=== PATIENT | female | born 1965 | race Caucasian/White ===

== ENCOUNTER 2018-01-26 14:38 | Inpatient (IN) | payer OTHER ==
[2018-01-26] MEDS: HYDROmorphONE 0.5 MG/0.5 ML SYG IV ×3 (16:28→23:20)
[2018-01-26] MEDS: SODIUM CHLORIDE 0.9% 1L BAG IV* (16:29)
[2018-01-26 16:48] LABS: ADD UMIC YES; UR ASCORBIC ACID NEGATIVE (NEGATIVE); UR BILIRUBIN (Dip) NEGATIVE (NEGATIVE); UR BLOOD (Dip) NEGATIVE (NEGATIVE); UR CLARITY CLEAR (CLEAR); UR COLOR YELLOW (YELLOW); UR GLUCOSE (Dip) NEGATIVE (NEGATIVE); UR KETONES (Dip) NEGATIVE (NEGATIVE); UR LEUKOCYTE ESTERASE (Dip) TRACE Leu/ul (NEGATIVE); UR NITRITE (Dip) NEGATIVE (NEGATIVE); UR RBC 1 /HPF (0-5); UR SPECIFIC GRAVITY (Dip) 1.008 (1.003-1.030); UR SQUAMOUS EPITHELIAL CELL FEW /HPF (FEW); UR TOTAL PROTEIN (Dip) NEGATIVE (NEGATIVE); UR UROBILINOGEN (Dip) NEGATIVE (NEGATIVE); UR WBC 3 /HPF (0-5)
[2018-01-26 17:22] LABS: LACTIC ACID 1.1 mmol/L (0.5-2.0)
[2018-01-26 17:23] LABS: ALANINE AMINOTRANSFERASE 34 IU/L (13-69); ALBUMIN 3.5 g/dl (3.3-4.9); ALKALINE PHOSPHATASE 112 IU/L (42-121); ANION GAP 15 (8-16); ASPARTATE AMINO TRANSFERASE 43 IU/L (15-46); BILIRUBIN,INDIRECT 0.4 mg/dl (0-1.1); BILIRUBIN,TOTAL 0.4 mg/dl (0.2-1.3); BLOOD UREA NITROGEN 4 mg/dl (7-20); CALCIUM 9.2 mg/dl (8.4-10.2); CARBON DIOXIDE 22 mmol/L (21-31); CHLORIDE 104 mmol/L (97-110); CREATININE 0.65 mg/dl (0.44-1.00); GLUCOSE 89 mg/dl (70-220); POTASSIUM 3.6 mmol/L (3.5-5.1); SODIUM 137 mmol/L (135-144); TOTAL PROTEIN 6.4 g/dl (6.1-8.1)
[2018-01-26 17:27] LABS: VANCOMYCIN,RANDOM 13.9 ug/ml
[2018-01-26 17:49] LABS: C-REACTIVE PROTEIN 1.3 mg/dl (0.0-0.9); TROPONIN-I < 0.012 ng/ml (0.00-0.12)
[2018-01-26 17:53] LABS: ADD MAN DIFF? NO
[2018-01-26 17:58] LABS: BASOPHILS % 0.6 % (0.0-2.0); EOSINOPHILS # 0.1 10^3/ul (0.0-0.5); EOSINOPHILS % 2.8 % (0.0-7.0); HEMATOCRIT 32.9 % (37.0-47.0); HEMOGLOBIN 11.3 g/dl (12.0-16.0); LYMPHOCYTES # 0.9 10^3/ul (0.8-2.9); MEAN CORPUSCULAR HEMOGLOBIN 37.2 pg (29.0-33.0); MEAN CORPUSCULAR HGB CONC 34.3 g/dl (32.0-37.0); MEAN CORPUSCULAR VOLUME 108.2 fl (82.0-101.0); MEAN PLATELET VOLUME 9.5 fl (7.4-10.4); MONOCYTE # 0.4 10^3/ul (0.3-0.9); MONOCYTES % 11.7 % (0.0-11.0); NEUTROPHIL # 2.2 10^3/ul (1.6-7.5); NEUTROPHILS % 60.6 % (39.0-77.0); PLATELET COUNT 209 10^3/UL (140-415); RED BLOOD COUNT 3.04 10^6/ul (4.20-5.40); RED CELL DISTRIBUTION WIDTH 14.2 % (11.5-14.5)
[2018-01-26 17:58] LABS: WHITE BLOOD COUNT 3.6 10^3/ul (4.8-10.8)
[2018-01-26] MEDS: ALTEPLASE (CATHFLO) 2 MG INJ CATHETER (18:15)
[2018-01-26 19:17] LABS: INR 0.98; PROTIME 13.1 Sec (11.9-14.9)
[2018-01-26 19:21] LABS: LACTIC ACID 0.9 mmol/L (0.5-2.0)
[2018-01-26 19:59] LABS: ERYTHROCYTE SEDIMENTATION RATE 65 mm/Hr (0-30)
[2018-01-26] MEDS ORDERED: ONDANSETRON 4 MG INJ IV ×2 (20:30→21:00)
[2018-01-26] MEDS ORDERED: ACETAMINOPHEN 325 MG TAB PO ×2 (20:30→21:00)
[2018-01-26] MEDS ORDERED: BISACODYL (EC) 5 MG TAB PO (21:00)
[2018-01-26] MEDS ORDERED: DOCUSATE SODIUM 100 MG CAP PO (21:00)
[2018-01-26] MEDS ORDERED: NACL 0.9% 3 ML SYG IV (21:00)
[2018-01-26 22:02] LABS: ETHANOL < 10.0 mg/dl
[2018-01-26] MEDS: HYDROmorphONE 4 MG TAB PO (22:18)
[2018-01-26 23:19] LABS: FOLATE > 20.0 ng/ml (2.8-20.0)
[2018-01-27] MEDS: HYDROmorphONE 0.5 MG/0.5 ML SYG IV ×3 (03:46→12:00)
[2018-01-27 05:07] LABS: ADD MAN DIFF? NO
[2018-01-27 05:15] LABS: WHITE BLOOD COUNT 2.7 10^3/ul (4.8-10.8)
[2018-01-27 05:15] LABS: BASOPHILS % 0.7 % (0.0-2.0); EOSINOPHILS # 0.2 10^3/ul (0.0-0.5); EOSINOPHILS % 5.9 % (0.0-7.0); HEMOGLOBIN 10.2 g/dl (12.0-16.0); LYMPHOCYTES # 0.7 10^3/ul (0.8-2.9); LYMPHOCYTES % 24.5 % (15.0-51.0); MEAN CORPUSCULAR HGB CONC 35.2 g/dl (32.0-37.0); MEAN CORPUSCULAR VOLUME 105.1 fl (82.0-101.0); MONOCYTE # 0.2 10^3/ul (0.3-0.9); MONOCYTES % 8.4 % (0.0-11.0); NEUTROPHIL # 1.6 10^3/ul (1.6-7.5); NEUTROPHILS % 60.1 % (39.0-77.0); PLATELET COUNT 205 10^3/UL (140-415); RED BLOOD COUNT 2.76 10^6/ul (4.20-5.40); RED CELL DISTRIBUTION WIDTH 14.2 % (11.5-14.5)
[2018-01-27 05:32] LABS: POSITIVE DIFF @See below
[2018-01-27 05:34] LABS: ALANINE AMINOTRANSFERASE 37 IU/L (13-69); ALBUMIN 3.1 g/dl (3.3-4.9); ALBUMIN/GLOBULIN RATIO 1.24; ALKALINE PHOSPHATASE 109 IU/L (42-121); ANION GAP 13 (8-16); ASPARTATE AMINO TRANSFERASE 24 IU/L (15-46); BILIRUBIN,INDIRECT 0.3 mg/dl (0-1.1); BILIRUBIN,TOTAL 0.3 mg/dl (0.2-1.3); BLOOD UREA NITROGEN 5 mg/dl (7-20); CALCIUM 9.1 mg/dl (8.4-10.2); CARBON DIOXIDE 22 mmol/L (21-31); CHLORIDE 106 mmol/L (97-110); CHOL/HDL RATIO 2.8 RATIO; CHOLESTEROL 165 mg/dl (100-200); CREATININE 0.67 mg/dl (0.44-1.00); GLUCOSE 90 mg/dl (70-220); HDL CHOLESTEROL 58 mg/dl (37-92); LDL CHOLESTEROL,CALCULATED 69 mg/dl; MAGNESIUM 1.4 mg/dl (1.7-2.5); POTASSIUM 3.3 mmol/L (3.5-5.1); SODIUM 138 mmol/L (135-144); TOTAL PROTEIN 5.6 g/dl (6.1-8.1); TRIGLYCERIDES 191 mg/dl (0-149)
[2018-01-27 06:13] LABS: HEMOGLOBIN A1C 4.6 % (0-5.9)
[2018-01-27] MEDS: PANTOPRAZOLE (EC) 40 MG TAB PO (06:36)
[2018-01-27] MEDS: LEVOTHYROXINE 25 MCG TAB PO (06:36)
[2018-01-27] MEDS: ALTEPLASE (CATHFLO) 2 MG INJ CATHETER (06:37)
[2018-01-27] MEDS ORDERED: VANCOMYCIN IV PER PHARMACY XX (08:00)
[2018-01-27] MEDS: FLUOXETINE 20 MG CAP PO (08:30)
[2018-01-27] MEDS: [UNRECOGNIZED DRUG - REMARK] XX ×2 (10:00→14:00)
[2018-01-27] MEDS: POTASSIUM CHLORIDE (SR) 20 MEQ TAB PO (10:13)
[2018-01-27] MEDS: VANCOMYCIN 1.25 GM in SOD CHLORIDE 0.9% 250 ML IVPB (10:13)
[2018-01-27] MEDS: METHADONE 10 MG TAB PO (10:23)
[2018-01-27] MEDS: IOHEXOL 300MG/ML 150 ML BTL (11:28)
[2018-01-27] MEDS: SOD CHLORIDE 0.9% 100 ML (11:28)
[2018-01-27] MEDS ORDERED: PIPER-TAZO 3.375 GM IV (PMX) 100 ML IVPB (12:00)
[2018-01-27] MEDS: MAGNESIUM SULFATE 4 GM/100 ML 100 ML IVPB (14:59)
[2018-01-27 15:03] LABS: ADD MAN DIFF? NO
[2018-01-27 15:04] LABS: BASOPHILS % 0.3 % (0.0-2.0); EOSINOPHILS # 0.2 10^3/ul (0.0-0.5); EOSINOPHILS % 5.6 % (0.0-7.0); HEMATOCRIT 27.7 % (37.0-47.0); HEMOGLOBIN 9.8 g/dl (12.0-16.0); LYMPHOCYTES # 0.7 10^3/ul (0.8-2.9); LYMPHOCYTES % 22.4 % (15.0-51.0); MEAN CORPUSCULAR HEMOGLOBIN 37.5 pg (29.0-33.0); MEAN CORPUSCULAR HGB CONC 35.4 g/dl (32.0-37.0); MEAN CORPUSCULAR VOLUME 106.1 fl (82.0-101.0); MEAN PLATELET VOLUME 9.4 fl (7.4-10.4); MONOCYTE # 0.3 10^3/ul (0.3-0.9); MONOCYTES % 8.3 % (0.0-11.0); NEUTROPHIL # 1.9 10^3/ul (1.6-7.5); NEUTROPHILS % 63.1 % (39.0-77.0); PLATELET COUNT 214 10^3/UL (140-415); RED BLOOD COUNT 2.61 10^6/ul (4.20-5.40); RED CELL DISTRIBUTION WIDTH 14.3 % (11.5-14.5)
[2018-01-27 15:20] LABS: FREE T4 (FREE THYROXINE) 1.22 ng/dl (0.64-1.79); T4 (THYROXINE) 7.5 ug/dl (5.5-11.0)
[2018-01-27] MEDS: KETOROLAC 30 MG INJ IV ×2 (15:56→23:57)
[2018-01-27 16:10] LABS: FOLATE > 20.0 ng/ml (2.8-20.0)
[2018-01-27 19:48] LABS: ANISOCYTOSIS 1+ (0-0); EOSINOPHILS % (M) 6 % (0-7); GIANT THROMBO% (M) 5 % (0-0); LYMPHOCYTES #M 0.5 10^3/ul (0.8-2.9); LYMPHOCYTES % (M) 18 % (15-51); MONOCYTES % (M) 3 % (0-11); PLATELET MORPHOLOGY COMMENT @See below; SEGMENTED NEUTROPHILS (M) % 73 % (39-77); SMUDGE%M 17 % (0-0)
[2018-01-27] MEDS: VANCOMYCIN 1 GM 250 ML IVPB (20:52)
[2018-01-27] MEDS: LORAZEPAM 1 MG TAB PO (20:57)
[2018-01-28 05:20] LABS: ADD MAN DIFF? NO
[2018-01-28 05:28] LABS: BASOPHILS % 0.4 % (0.0-2.0); EOSINOPHILS # 0.2 10^3/ul (0.0-0.5); EOSINOPHILS % 7.4 % (0.0-7.0); HEMATOCRIT 27.8 % (37.0-47.0); HEMOGLOBIN 9.5 g/dl (12.0-16.0); LYMPHOCYTES # 0.7 10^3/ul (0.8-2.9); LYMPHOCYTES % 30.7 % (15.0-51.0); MEAN CORPUSCULAR HEMOGLOBIN 37.1 pg (29.0-33.0); MEAN CORPUSCULAR HGB CONC 34.2 g/dl (32.0-37.0); MEAN CORPUSCULAR VOLUME 108.6 fl (82.0-101.0); MONOCYTE # 0.2 10^3/ul (0.3-0.9); NEUTROPHIL # 1.2 10^3/ul (1.6-7.5); NEUTROPHILS % 51.5 % (39.0-77.0); PLATELET COUNT 192 10^3/UL (140-415); RED BLOOD COUNT 2.56 10^6/ul (4.20-5.40); RED CELL DISTRIBUTION WIDTH 14.5 % (11.5-14.5)
[2018-01-28 05:28] LABS: WHITE BLOOD COUNT 2.3 10^3/ul (4.8-10.8)
[2018-01-28 05:50] LABS: ANION GAP 14 (8-16); BLOOD UREA NITROGEN 8 mg/dl (7-20); CALCIUM 8.7 mg/dl (8.4-10.2); CARBON DIOXIDE 21 mmol/L (21-31); CHLORIDE 110 mmol/L (97-110); CREATININE 0.82 mg/dl (0.44-1.00); GLUCOSE 79 mg/dl (70-220); MAGNESIUM 2.3 mg/dl (1.7-2.5); PHOSPHORUS 5.3 mg/dl (2.5-4.9); POTASSIUM 3.8 mmol/L (3.5-5.1); SODIUM 141 mmol/L (135-144)
[2018-01-28] MEDS: KETOROLAC 30 MG INJ IV ×2 (06:06→17:14)
[2018-01-28 06:26] LABS: HAAIG REFLEX REFLEX FILED
[2018-01-28 06:29] LABS: HIV 1&2 ANTIBODY NEGATIVE (NEGATIVE)
[2018-01-28] MEDS: LEVOTHYROXINE 25 MCG TAB PO (09:38)
[2018-01-28] MEDS: PANTOPRAZOLE (EC) 40 MG TAB PO (09:38)
[2018-01-28] MEDS: FLUOXETINE 20 MG CAP PO (09:39)
[2018-01-28] MEDS: VANCOMYCIN 1 GM 250 ML IVPB ×2 (09:43→21:18)
[2018-01-28] MEDS: HYDROmorphONE 2 MG/ML SYG IV (12:29)
[2018-01-28] MEDS: HYDROmorphONE 4 MG TAB PO ×2 (14:53→21:18)
[2018-01-28 15:25] LABS: HEPATITIS B SURFACE ANTIGEN NEGATIVE (NEGATIVE)
[2018-01-28 15:43] LABS: HEPATITIS B CORE ANTIBODY NEGATIVE (NEGATIVE); HEPATITIS C VIRAL ANTIBODY NEGATIVE (NEGATIVE)
[2018-01-28 18:18] LABS: RETICULOCYTE RBC 2.52
[2018-01-28 18:18] LABS: RETICULOCYTE COUNT # 0.059 X10^6 (0.020-0.110); RETICULOCYTE COUNT % 2.4 % (0.5-1.5)
[2018-01-28 18:41] LABS: IRON 29 ug/dl (35-150)
[2018-01-28 18:42] LABS: LACTATE DEHYDROGENASE 429 IU/L (313-618)
[2018-01-28 18:50] LABS: % IRON SATURATION 13 % SAT (22-52); TOTAL IRON BINDING CAPACITY 232 ug/dl (241-421)
[2018-01-28] MEDS: LORAZEPAM 1 MG TAB PO (21:18)
[2018-01-29] MEDS: KETOROLAC 30 MG INJ IV (02:31)
[2018-01-29] MEDS: HYDROmorphONE 4 MG TAB PO ×6 (04:55→23:35)
[2018-01-29 05:28] LABS: ADD MAN DIFF? NO
[2018-01-29 05:42] LABS: BASOPHILS % 0.7 % (0.0-2.0); EOSINOPHILS # 0.2 10^3/ul (0.0-0.5); EOSINOPHILS % 6.5 % (0.0-7.0); HEMATOCRIT 27.7 % (37.0-47.0); HEMOGLOBIN 9.5 g/dl (12.0-16.0); LYMPHOCYTES # 0.7 10^3/ul (0.8-2.9); LYMPHOCYTES % 25.1 % (15.0-51.0); MEAN CORPUSCULAR HEMOGLOBIN 36.7 pg (29.0-33.0); MEAN CORPUSCULAR HGB CONC 34.3 g/dl (32.0-37.0); MEAN CORPUSCULAR VOLUME 106.9 fl (82.0-101.0); MEAN PLATELET VOLUME 10.1 fl (7.4-10.4); MONOCYTE # 0.3 10^3/ul (0.3-0.9); MONOCYTES % 9.1 % (0.0-11.0); NEUTROPHIL # 1.6 10^3/ul (1.6-7.5); NEUTROPHILS % 58.2 % (39.0-77.0); PLATELET COUNT 192 10^3/UL (140-415); RED BLOOD COUNT 2.59 10^6/ul (4.20-5.40)
[2018-01-29 05:42] LABS: WHITE BLOOD COUNT 2.8 10^3/ul (4.8-10.8)
[2018-01-29] MEDS: PANTOPRAZOLE (EC) 40 MG TAB PO (06:27)
[2018-01-29] MEDS: LEVOTHYROXINE 25 MCG TAB PO (06:27)
[2018-01-29 06:51] LABS: ANION GAP 11 (8-16); BLOOD UREA NITROGEN 6 mg/dl (7-20); CALCIUM 8.6 mg/dl (8.4-10.2); CARBON DIOXIDE 25 mmol/L (21-31); CHLORIDE 109 mmol/L (97-110); CREATININE 0.74 mg/dl (0.44-1.00); GLUCOSE 79 mg/dl (70-220); MAGNESIUM 1.5 mg/dl (1.7-2.5); PHOSPHORUS 4.3 mg/dl (2.5-4.9); POTASSIUM 3.4 mmol/L (3.5-5.1); SODIUM 142 mmol/L (135-144)
[2018-01-29] MEDS: FLUOXETINE 20 MG CAP PO (08:57)
[2018-01-29 09:36] LABS: VANCOMYCIN,TROUGH 14.2 ug/ml (10.0-20.0)
[2018-01-29] MEDS: VANCOMYCIN 1 GM 250 ML IVPB ×2 (09:52→20:36)
[2018-01-29 19:50] LABS: HOMOCYSTEINE - CARDIOVASCULAR 7.9 umol/L (<10.4)
[2018-01-29] MEDS: LORAZEPAM 1 MG TAB PO (20:13)
[2018-01-29] MEDS: PIPER-TAZO 3.375 GM IV (PMX) 100 ML IVPB (23:00)
[2018-01-30] MEDS: HYDROmorphONE 4 MG TAB PO ×7 (02:34→23:17)
[2018-01-30 04:52] LABS: PROTEIN, TOTAL 5.1 g/dL (6.1-8.1)
[2018-01-30] MEDS: PIPER-TAZO 3.375 GM IV (PMX) 100 ML IVPB ×3 (05:41→22:39)
[2018-01-30] MEDS: LEVOTHYROXINE 25 MCG TAB PO (06:43)
[2018-01-30] MEDS: PANTOPRAZOLE (EC) 40 MG TAB PO (06:43)
[2018-01-30] MEDS: FLUOXETINE 20 MG CAP PO (08:39)
[2018-01-30] MEDS: VANCOMYCIN 1 GM 250 ML IVPB ×2 (08:39→20:34)
[2018-01-30] MEDS ORDERED: ALTEPLASE (CATHFLO) 2 MG INJ CATHETER (11:00)
[2018-01-30 12:07] LABS: ANION GAP 14 (8-16); BLOOD UREA NITROGEN 6 mg/dl (7-20); CARBON DIOXIDE 24 mmol/L (21-31); CHLORIDE 106 mmol/L (97-110); CREATININE 0.82 mg/dl (0.44-1.00); GLUCOSE 96 mg/dl (70-220); MAGNESIUM 1.3 mg/dl (1.7-2.5); POTASSIUM 3.9 mmol/L (3.5-5.1); SODIUM 140 mmol/L (135-144)
[2018-01-30] MEDS ORDERED: METHADONE 10 MG TAB PO (12:30)
[2018-01-30] MEDS: METHADONE 5 MG TAB PO ×2 (14:43→20:39)
[2018-01-30 15:36] LABS: ALBUMIN 2.6 g/dL (3.8-4.8); ALPHA-1-GLOBULINS 0.4 g/dL (0.2-0.3); ALPHA-2-GLOBULINS 0.8 g/dL (0.5-0.9); BETA 2 GLOBULINS 0.3 g/dL (0.2-0.5); BETA GLOBULINS 0.4 g/dL (0.4-0.6); GAMMA GLOBULINS 0.6 g/dL (0.8-1.7)
[2018-01-30] MEDS: ALTEPLASE (CATHFLO) 2 MG INJ CATHETER (16:31)
[2018-01-30 17:26] LABS: HAPTOGLOBIN 202 mg/dL (43-212)
[2018-01-30] MEDS: MAGNESIUM SULFATE 6 GM in DEXTROSE 5% 150 ML IVPB (18:03)
[2018-01-30] MEDS: LORAZEPAM 1 MG TAB PO (21:34)
[2018-01-30 21:51] LABS: VITAMIN B1 (THIAMINE) 113 nmol/L (78-185)
[2018-01-31] MEDS: HYDROmorphONE 4 MG TAB PO ×7 (03:05→23:06)
[2018-01-31 04:57] LABS: ADD MAN DIFF? NO
[2018-01-31 05:01] LABS: ABNORMAL IP MESSAGE 1; EOSINOPHILS # 0.1 10^3/ul (0.0-0.5); EOSINOPHILS % 7.1 % (0.0-7.0); HEMATOCRIT 27.9 % (37.0-47.0); HEMOGLOBIN 9.5 g/dl (12.0-16.0); LYMPHOCYTES # 0.7 10^3/ul (0.8-2.9); LYMPHOCYTES % 34.7 % (15.0-51.0); MEAN CORPUSCULAR HEMOGLOBIN 35.6 pg (29.0-33.0); MEAN CORPUSCULAR HGB CONC 34.1 g/dl (32.0-37.0); MEAN CORPUSCULAR VOLUME 104.5 fl (82.0-101.0); MEAN PLATELET VOLUME 9.9 fl (7.4-10.4); MONOCYTE # 0.2 10^3/ul (0.3-0.9); MONOCYTES % 11.2 % (0.0-11.0); NEUTROPHIL # 0.9 10^3/ul (1.6-7.5); PLATELET COUNT 197 10^3/UL (140-415); RED BLOOD COUNT 2.67 10^6/ul (4.20-5.40); RED CELL DISTRIBUTION WIDTH 13.7 % (11.5-14.5)
[2018-01-31 05:17] LABS: ANION GAP 14 (8-16); BLOOD UREA NITROGEN 8 mg/dl (7-20); CALCIUM 8.6 mg/dl (8.4-10.2); CARBON DIOXIDE 24 mmol/L (21-31); CHLORIDE 106 mmol/L (97-110); CREATININE 0.79 mg/dl (0.44-1.00); GLUCOSE 94 mg/dl (70-220); MAGNESIUM 2.4 mg/dl (1.7-2.5); PHOSPHORUS 4.1 mg/dl (2.5-4.9); POTASSIUM 3.1 mmol/L (3.5-5.1); SODIUM 141 mmol/L (135-144)
[2018-01-31] MEDS: METHADONE 5 MG TAB PO (05:23)
[2018-01-31] MEDS: PIPER-TAZO 3.375 GM IV (PMX) 100 ML IVPB ×3 (05:23→23:07)
[2018-01-31 05:36] LABS: POSITIVE DIFF @See below
[2018-01-31] MEDS: LEVOTHYROXINE 25 MCG TAB PO (08:33)
[2018-01-31] MEDS: VANCOMYCIN 1 GM 250 ML IVPB ×2 (08:33→20:24)
[2018-01-31] MEDS: PANTOPRAZOLE (EC) 40 MG TAB PO (08:33)
[2018-01-31] MEDS: FLUOXETINE 20 MG CAP PO (08:33)
[2018-01-31] MEDS ORDERED: METHADONE 10 MG TAB PO (10:30)
[2018-01-31] MEDS: POTASSIUM CHLORIDE (SR) 20 MEQ TAB PO (20:22)
[2018-01-31] MEDS: METHADONE 10 MG TAB PO (20:23)
[2018-01-31] MEDS: LORAZEPAM 1 MG TAB PO (21:24)
[2018-02-01] MEDS: HYDROmorphONE 4 MG TAB PO ×3 (03:40→10:44)
[2018-02-01] MEDS: PIPER-TAZO 3.375 GM IV (PMX) 100 ML IVPB ×3 (05:20→21:20)
[2018-02-01] MEDS: LEVOTHYROXINE 25 MCG TAB PO (07:42)
[2018-02-01] MEDS: PANTOPRAZOLE (EC) 40 MG TAB PO (07:42)
[2018-02-01] MEDS: VANCOMYCIN 1 GM 250 ML IVPB (08:58)
[2018-02-01] MEDS: FLUOXETINE 20 MG CAP PO (08:58)
[2018-02-01] MEDS: METHADONE 10 MG TAB PO ×2 (08:58→20:58)
[2018-02-01 13:41] LABS: ADD MAN DIFF? NO
[2018-02-01 13:44] LABS: BASOPHILS % 0.7 % (0.0-2.0); EOSINOPHILS # 0.1 10^3/ul (0.0-0.5); EOSINOPHILS % 5.1 % (0.0-7.0); HEMATOCRIT 31.1 % (37.0-47.0); HEMOGLOBIN 10.7 g/dl (12.0-16.0); LYMPHOCYTES % 34.7 % (15.0-51.0); MEAN CORPUSCULAR HEMOGLOBIN 36.4 pg (29.0-33.0); MEAN CORPUSCULAR HGB CONC 34.4 g/dl (32.0-37.0); MEAN CORPUSCULAR VOLUME 105.8 fl (82.0-101.0); MONOCYTE # 0.3 10^3/ul (0.3-0.9); MONOCYTES % 11.6 % (0.0-11.0); NEUTROPHIL # 1.3 10^3/ul (1.6-7.5); NEUTROPHILS % 47.9 % (39.0-77.0); PLATELET COUNT 240 10^3/UL (140-415); RED BLOOD COUNT 2.94 10^6/ul (4.20-5.40); RED CELL DISTRIBUTION WIDTH 13.5 % (11.5-14.5)
[2018-02-01 13:44] LABS: WHITE BLOOD COUNT 2.8 10^3/ul (4.8-10.8)
[2018-02-01 14:00] LABS: ANION GAP 13 (8-16); BLOOD UREA NITROGEN 6 mg/dl (7-20); CALCIUM 9.4 mg/dl (8.4-10.2); CARBON DIOXIDE 23 mmol/L (21-31); CHLORIDE 108 mmol/L (97-110); CREATININE 0.83 mg/dl (0.44-1.00); GLUCOSE 110 mg/dl (70-220); POTASSIUM 4.3 mmol/L (3.5-5.1); SODIUM 140 mmol/L (135-144)
[2018-02-01] MEDS: HYDROmorphONE 2 MG TAB PO ×3 (14:04→22:05)
[2018-02-01] MEDS ORDERED: HYDROmorphONE 4 MG TAB PO (15:00)
[2018-02-01] MEDS ORDERED: HYDROmorphONE 2 MG TAB PO (15:00)
[2018-02-01] MEDS ORDERED: hydrALAzine 20 MG INJ IV (15:00)
[2018-02-01 20:55] LABS: VANCOMYCIN,TROUGH 17.2 ug/ml (10.0-20.0)
[2018-02-01] MEDS: LORAZEPAM 1 MG TAB PO (21:19)
[2018-02-02] MEDS ORDERED: VANCOMYCIN 750 MG in DEXTROSE 5% 150 ML IVPB
[2018-02-02] MEDS: VANCOMYCIN 750 MG in SOD CHLORIDE 0.9% 150 ML IVPB ×2 (00:20→11:55)
[2018-02-02] MEDS: HYDROmorphONE 2 MG TAB PO ×5 (02:03→20:12)
[2018-02-02] MEDS: PIPER-TAZO 3.375 GM IV (PMX) 100 ML IVPB ×3 (05:17→22:09)
[2018-02-02 05:55] LABS: ADD MAN DIFF? NO
[2018-02-02 06:00] LABS: ABNORMAL IP MESSAGE 1; EOSINOPHILS # 0.1 10^3/ul (0.0-0.5); EOSINOPHILS % 6.7 % (0.0-7.0); HEMATOCRIT 28.5 % (37.0-47.0); HEMOGLOBIN 9.8 g/dl (12.0-16.0); LYMPHOCYTES # 0.9 10^3/ul (0.8-2.9); LYMPHOCYTES % 47.7 % (15.0-51.0); MEAN CORPUSCULAR HGB CONC 34.4 g/dl (32.0-37.0); MEAN CORPUSCULAR VOLUME 104.8 fl (82.0-101.0); MEAN PLATELET VOLUME 10.2 fl (7.4-10.4); MONOCYTE # 0.3 10^3/ul (0.3-0.9); MONOCYTES % 12.8 % (0.0-11.0); NEUTROPHIL # 0.6 10^3/ul (1.6-7.5); NEUTROPHILS % 31.8 % (39.0-77.0); PLATELET COUNT 240 10^3/UL (140-415); RED BLOOD COUNT 2.72 10^6/ul (4.20-5.40); RED CELL DISTRIBUTION WIDTH 13.8 % (11.5-14.5)
[2018-02-02 06:22] LABS: POSITIVE DIFF @See below
[2018-02-02 06:24] LABS: ANION GAP 15 (8-16); BLOOD UREA NITROGEN 7 mg/dl (7-20); CALCIUM 8.9 mg/dl (8.4-10.2); CARBON DIOXIDE 22 mmol/L (21-31); CHLORIDE 109 mmol/L (97-110); CREATININE 0.76 mg/dl (0.44-1.00); GLUCOSE 89 mg/dl (70-220); POTASSIUM 3.6 mmol/L (3.5-5.1); SODIUM 142 mmol/L (135-144)
[2018-02-02] MEDS: LEVOTHYROXINE 25 MCG TAB PO (06:40)
[2018-02-02] MEDS: PANTOPRAZOLE (EC) 40 MG TAB PO (06:40)
[2018-02-02] MEDS: METHADONE 10 MG TAB PO ×2 (09:13→21:18)
[2018-02-02] MEDS: FLUOXETINE 20 MG CAP PO (09:14)
[2018-02-02] MEDS: LORAZEPAM 1 MG TAB PO (21:18)
[2018-02-03] MEDS: HYDROmorphONE 2 MG TAB PO ×4 (00:59→13:41)
[2018-02-03 05:11] LABS: ADD MAN DIFF? NO
[2018-02-03 05:12] LABS: ABNORMAL IP MESSAGE 1; BASOPHILS % 0.9 % (0.0-2.0); EOSINOPHILS # 0.1 10^3/ul (0.0-0.5); EOSINOPHILS % 5.5 % (0.0-7.0); HEMATOCRIT 30.4 % (37.0-47.0); HEMOGLOBIN 10.2 g/dl (12.0-16.0); LYMPHOCYTES # 0.9 10^3/ul (0.8-2.9); LYMPHOCYTES % 41.7 % (15.0-51.0); MEAN CORPUSCULAR HEMOGLOBIN 35.7 pg (29.0-33.0); MEAN CORPUSCULAR HGB CONC 33.6 g/dl (32.0-37.0); MEAN CORPUSCULAR VOLUME 106.3 fl (82.0-101.0); MONOCYTE # 0.3 10^3/ul (0.3-0.9); MONOCYTES % 11.9 % (0.0-11.0); NEUTROPHIL # 0.9 10^3/ul (1.6-7.5); NEUTROPHILS % 39.5 % (39.0-77.0); PLATELET COUNT 248 10^3/UL (140-415); RED BLOOD COUNT 2.86 10^6/ul (4.20-5.40); RED CELL DISTRIBUTION WIDTH 13.6 % (11.5-14.5)
[2018-02-03 05:12] LABS: WHITE BLOOD COUNT 2.2 10^3/ul (4.8-10.8)
[2018-02-03 05:40] LABS: POSITIVE DIFF @See below
[2018-02-03 05:45] LABS: ANION GAP 16 (8-16); BLOOD UREA NITROGEN 9 mg/dl (7-20); CARBON DIOXIDE 21 mmol/L (21-31); CHLORIDE 109 mmol/L (97-110); GLUCOSE 90 mg/dl (70-220); POTASSIUM 3.7 mmol/L (3.5-5.1); SODIUM 142 mmol/L (135-144)
[2018-02-03] MEDS: PANTOPRAZOLE (EC) 40 MG TAB PO (06:39)
[2018-02-03] MEDS: LEVOTHYROXINE 25 MCG TAB PO (06:39)
[2018-02-03] MEDS: FLUOXETINE 20 MG CAP PO (08:27)
[2018-02-03] MEDS: METHADONE 10 MG TAB PO (08:28)
[2018-02-03] MEDS ORDERED: METHADONE 10 MG TAB PO (21:00)
== END 2018-02-03 16:00 | disposition home or self-care (01) | DRG 603 ==
LOC: FTE 14:38 → MS1 20:07
DX: L03.113 Cellulitis of right upper limb (principal); F11.20 Opioid dependence, uncomplicated; G90.50 Complex regional pain syndrome I, unspecified; R78.81 Bacteremia; D61.818 Other pancytopenia; F31.9 Bipolar disorder, unspecified; G89.4 Chronic pain syndrome; D53.9 Nutritional anemia, unspecified; J45.909 Unspecified asthma, uncomplicated; F41.9 Anxiety disorder, unspecified; I10 Essential (primary) hypertension; E78.5 Hyperlipidemia, unspecified
CPT/HCPCS: 71045; 73070; 73080-RT; 73200; 73221; 73510; 76700; 80048; 80053; 80061; 80202; 80306; 81001; 82607; 82728; 82746; 83010; 83036; 83090; 83540; 83605; 83615; 83735; 83921; 84100; 84155; 84165; 84425; 84436; 84439; 84443; 84484; 84703; 85025; 85045; 85610; 85651; 85730; 86140; 86703; 86704; 86709; 86803; 87040; 87070; 87081; 87340; 93005; 96374; 96376; 97110; 97116; 97161; 99285-25

== ENCOUNTER 2018-02-06 15:08 | Inpatient (IN) | payer OTHER ==
[2018-02-06] MEDS ORDERED: HYDROmorphONE 1 MG/ML SYG IV (16:28)
[2018-02-06 17:33] LABS: ADD MAN DIFF? NO
[2018-02-06 17:36] LABS: WHITE BLOOD COUNT 4.2 10^3/ul (4.8-10.8)
[2018-02-06 17:36] LABS: EOSINOPHILS # 0.1 10^3/ul (0.0-0.5); EOSINOPHILS % 1.7 % (0.0-7.0); HEMATOCRIT 34.2 % (37.0-47.0); HEMOGLOBIN 11.5 g/dl (12.0-16.0); LYMPHOCYTES # 1.7 10^3/ul (0.8-2.9); LYMPHOCYTES % 41.6 % (15.0-51.0); MEAN CORPUSCULAR HGB CONC 33.6 g/dl (32.0-37.0); MEAN PLATELET VOLUME 9.4 fl (7.4-10.4); MONOCYTE # 0.2 10^3/ul (0.3-0.9); MONOCYTES % 5.8 % (0.0-11.0); NEUTROPHIL # 2.1 10^3/ul (1.6-7.5); NEUTROPHILS % 49.4 % (39.0-77.0); PLATELET COUNT 352 10^3/UL (140-415); RED BLOOD COUNT 3.29 10^6/ul (4.20-5.40); RED CELL DISTRIBUTION WIDTH 13.2 % (11.5-14.5)
[2018-02-06] MEDS: KETOROLAC 30 MG INJ IV (17:46)
[2018-02-06] MEDS: HYDROmorphONE 0.5 MG/0.5 ML SYG IV ×3 (17:46→19:35)
[2018-02-06] MEDS: SOD CHLORIDE 0.9% 1,000 ML IV ×2 (17:46→22:51)
[2018-02-06 17:54] LABS: INR 0.85; PROTIME 11.7 Sec (11.9-14.9); PT RATIO 0.9
[2018-02-06 17:55] LABS: PARTIAL THROMBOPLASTIN TIME 27.1 Sec (25.0-35.0)
[2018-02-06 18:06] LABS: ALANINE AMINOTRANSFERASE 30 IU/L (13-69); ALBUMIN 4.2 g/dl (3.3-4.9); ALKALINE PHOSPHATASE 149 IU/L (42-121); ANION GAP 21 (8-16); ASPARTATE AMINO TRANSFERASE 29 IU/L (15-46); BLOOD UREA NITROGEN 7 mg/dl (7-20); CALCIUM 9.9 mg/dl (8.4-10.2); CARBON DIOXIDE 22 mmol/L (21-31); CHLORIDE 107 mmol/L (97-110); CREATININE 0.74 mg/dl (0.44-1.00); GLUCOSE 76 mg/dl (70-220); POTASSIUM 4.1 mmol/L (3.5-5.1); SODIUM 146 mmol/L (135-144); TOTAL PROTEIN 7.2 g/dl (6.1-8.1)
[2018-02-06 18:23] LABS: FREE THYROXINE INDEX (Calc) 2.53 ug/ml (0.65-3.89)
[2018-02-06 18:24] LABS: TROPONIN-I < 0.012 ng/ml (0.00-0.12)
[2018-02-06 18:32] LABS: T3 UPTAKE 29.4 % (23.5-40.5); T4 (THYROXINE) 8.6 ug/dl (5.5-11.0)
[2018-02-06 18:51] LABS: LITHIUM 0.4 mmol/L (0.6-1.3)
[2018-02-06] MEDS: VANCOMYCIN 1 GM (PMX) 250 ML IVPB (19:41)
[2018-02-06] MEDS ORDERED: ONDANSETRON 4 MG INJ IV (20:30)
[2018-02-06] MEDS ORDERED: ACETAMINOPHEN 325 MG TAB PO ×2 (20:30→22:30)
[2018-02-06] MEDS: FENTAnyl 50 MCG/ML VIAL IV (20:58)
[2018-02-06] MEDS: HYDROmorphONE 4 MG TAB PO (21:06)
[2018-02-06] MEDS: HYDROCODONE/APAP (5/325) TAB PO (22:50)
[2018-02-06] MEDS: LORAZEPAM 1 MG TAB PO (23:01)
[2018-02-06] MEDS: METHADONE 10 MG TAB PO ×2 (23:19→23:21)
[2018-02-07] MEDS ORDERED: LORAZEPAM 2 MG INJ IV (06:30)
[2018-02-07] MEDS ORDERED: LORAZEPAM 1 MG TAB PO (06:30)
[2018-02-07] MEDS: PANTOPRAZOLE (EC) 40 MG TAB PO (07:30)
[2018-02-07] MEDS: SOD CHLORIDE 0.9% 1,000 ML IV ×2 (08:30→19:33)
[2018-02-07] MEDS: LEVOTHYROXINE 25 MCG TAB PO (08:50)
[2018-02-07] MEDS: METHADONE 10 MG TAB PO ×2 (08:50→20:15)
[2018-02-07] MEDS: FLUOXETINE 20 MG CAP PO (08:50)
[2018-02-07] MEDS: CHLORDIAZEPOXIDE 25 MG CAP PO ×3 (08:51→20:14)
[2018-02-07 08:53] LABS: ADD MAN DIFF? NO
[2018-02-07 09:11] LABS: BASOPHILS % 0.8 % (0.0-2.0); EOSINOPHILS # 0.1 10^3/ul (0.0-0.5); EOSINOPHILS % 2.3 % (0.0-7.0); HEMATOCRIT 30.1 % (37.0-47.0); LYMPHOCYTES # 0.7 10^3/ul (0.8-2.9); LYMPHOCYTES % 27.4 % (15.0-51.0); MEAN CORPUSCULAR HEMOGLOBIN 35.5 pg (29.0-33.0); MEAN CORPUSCULAR HGB CONC 33.2 g/dl (32.0-37.0); MEAN CORPUSCULAR VOLUME 106.7 fl (82.0-101.0); MEAN PLATELET VOLUME 9.7 fl (7.4-10.4); MONOCYTE # 0.3 10^3/ul (0.3-0.9); MONOCYTES % 11.3 % (0.0-11.0); NEUTROPHIL # 1.5 10^3/ul (1.6-7.5); NEUTROPHILS % 57.8 % (39.0-77.0); PLATELET COUNT 253 10^3/UL (140-415); RED BLOOD COUNT 2.82 10^6/ul (4.20-5.40); RED CELL DISTRIBUTION WIDTH 13.5 % (11.5-14.5)
[2018-02-07 09:11] LABS: WHITE BLOOD COUNT 2.7 10^3/ul (4.8-10.8)
[2018-02-07] MEDS: MULTIVITAMINS 10 ML, THIAMINE 100 MG, FOLIC ACID 1 MG in SOD CHLORIDE 0.9% 1,000 ML IVPB (09:16)
[2018-02-07 09:31] LABS: ALANINE AMINOTRANSFERASE 33 IU/L (13-69); ALBUMIN 3.1 g/dl (3.3-4.9); ALBUMIN/GLOBULIN RATIO 1.19; ALKALINE PHOSPHATASE 103 IU/L (42-121); ANION GAP 14 (8-16); ASPARTATE AMINO TRANSFERASE 26 IU/L (15-46); BLOOD UREA NITROGEN 10 mg/dl (7-20); CALCIUM 8.8 mg/dl (8.4-10.2); CARBON DIOXIDE 23 mmol/L (21-31); CHLORIDE 109 mmol/L (97-110); CREATININE 0.69 mg/dl (0.44-1.00); GLUCOSE 92 mg/dl (70-220); POTASSIUM 3.8 mmol/L (3.5-5.1); SODIUM 142 mmol/L (135-144); TOTAL PROTEIN 5.7 g/dl (6.1-8.1)
[2018-02-07] MEDS: HYDROCODONE/APAP (5/325) TAB PO ×2 (11:09→19:01)
[2018-02-08] MEDS: SOD CHLORIDE 0.9% 1,000 ML IV ×2 (04:30→05:23)
[2018-02-08] MEDS: HYDROCODONE/APAP (5/325) TAB PO ×2 (05:22→09:42)
[2018-02-08] MEDS: PANTOPRAZOLE (EC) 40 MG TAB PO (07:58)
[2018-02-08] MEDS: LEVOTHYROXINE 25 MCG TAB PO (07:58)
[2018-02-08] MEDS: INFLUENZA VIRUS VACCINE 0.5 ML (DISPENSING) IM* (08:05)
[2018-02-08] MEDS: METHADONE 10 MG TAB PO ×2 (08:38→21:04)
[2018-02-08] MEDS: CHLORDIAZEPOXIDE 25 MG CAP PO ×3 (08:38→21:04)
[2018-02-08] MEDS: MULTIVITAMINS 10 ML, THIAMINE 100 MG, FOLIC ACID 1 MG in SOD CHLORIDE 0.9% 1,000 ML IVPB (08:38)
[2018-02-08] MEDS: FLUOXETINE 20 MG CAP PO (08:38)
[2018-02-08] MEDS ORDERED: HYDROmorphONE 4 MG TAB PO ×2 (11:00→15:00)
[2018-02-08] MEDS: HYDROmorphONE 2 MG/ML SYG IV (11:05)
[2018-02-08] MEDS: HYDROmorphONE 2 MG TAB PO ×3 (15:19→23:38)
[2018-02-09] MEDS: HYDROmorphONE 2 MG TAB PO ×6 (03:22→23:31)
[2018-02-09] MEDS: LEVOTHYROXINE 25 MCG TAB PO (06:44)
[2018-02-09] MEDS: PANTOPRAZOLE (EC) 40 MG TAB PO (06:44)
[2018-02-09] MEDS: FLUOXETINE 20 MG CAP PO (08:40)
[2018-02-09] MEDS: METHADONE 10 MG TAB PO ×2 (08:40→21:08)
[2018-02-09] MEDS: MULTIVITAMINS 10 ML, THIAMINE 100 MG, FOLIC ACID 1 MG in SOD CHLORIDE 0.9% 1,000 ML IVPB (08:41)
[2018-02-10] MEDS: HYDROmorphONE 2 MG TAB PO ×6 (03:36→23:23)
[2018-02-10] MEDS: PANTOPRAZOLE (EC) 40 MG TAB PO (06:35)
[2018-02-10] MEDS: LEVOTHYROXINE 25 MCG TAB PO (06:35)
[2018-02-10] MEDS: FLUOXETINE 20 MG CAP PO (08:43)
[2018-02-10] MEDS: METHADONE 10 MG TAB PO ×2 (08:43→20:36)
[2018-02-10] MEDS: FOLIC ACID 1 MG TAB PO (09:58)
[2018-02-10] MEDS: MULTIVITAMINS THERAPEUTIC TAB PO (09:58)
[2018-02-10] MEDS: THIAMINE 100 MG TAB PO (09:58)
[2018-02-11] MEDS: LEVOTHYROXINE 25 MCG TAB PO (06:38)
[2018-02-11] MEDS: PANTOPRAZOLE (EC) 40 MG TAB PO (06:38)
[2018-02-11] MEDS: HYDROmorphONE 2 MG TAB PO ×5 (06:39→23:35)
[2018-02-11] MEDS: THIAMINE 100 MG TAB PO (09:07)
[2018-02-11] MEDS: MULTIVITAMINS THERAPEUTIC TAB PO (09:07)
[2018-02-11] MEDS: FOLIC ACID 1 MG TAB PO (09:07)
[2018-02-11] MEDS: FLUOXETINE 20 MG CAP PO (09:08)
[2018-02-11] MEDS: METHADONE 10 MG TAB PO ×2 (09:09→20:38)
[2018-02-12] MEDS: LEVOTHYROXINE 25 MCG TAB PO (06:35)
[2018-02-12] MEDS: HYDROmorphONE 2 MG TAB PO ×3 (06:35→15:23)
[2018-02-12] MEDS: FOLIC ACID 1 MG TAB PO (09:17)
[2018-02-12] MEDS: MULTIVITAMINS THERAPEUTIC TAB PO (09:17)
[2018-02-12] MEDS: PANTOPRAZOLE (EC) 40 MG TAB PO (09:17)
[2018-02-12] MEDS: THIAMINE 100 MG TAB PO (09:17)
[2018-02-12] MEDS: FLUOXETINE 20 MG CAP PO (09:18)
[2018-02-12] MEDS: METHADONE 10 MG TAB PO (10:00)
[2018-02-12] MEDS ORDERED: METHADONE 10 MG TAB PO (17:00)
== END 2018-02-12 15:40 | disposition home health service (06) | DRG 59 ==
LOC: PP2 02-11 16:55 → E/R 15:08 → MS4 20:19
PROVIDERS: Internal Medicine
DX: G37.2 Central pontine myelinolysis (principal); L03.113 Cellulitis of right upper limb; G90.50 Complex regional pain syndrome I, unspecified; E03.9 Hypothyroidism, unspecified; F31.9 Bipolar disorder, unspecified; F10.129 Alcohol abuse with intoxication, unspecified; Y90.7 Blood alcohol level of 200-239 mg/100 ml; Z91.81 History of falling
CPT/HCPCS: 36415; 70450; 70553; 71045; 80053; 80178; 80306; 82962; 84436; 84479; 84484; 85025; 85610; 85730; 87081; 93005; 96374; 96375; 96376; 97110; 97116; 97162; 97530; 99285-25

== ENCOUNTER 2018-02-26 11:31 | Emergency (ER) | payer OTHER | END 2018-02-26 14:37 | disposition left against medical advice (07) | LOC: E/R 11:31 | DX: L30.9 Dermatitis, unspecified (principal); G89.4 Chronic pain syndrome; Z48.01 Encounter for change or removal of surgical wound dressing; Z76.0 Encounter for issue of repeat prescription | CPT/HCPCS: 99283; Z7502 ==

== ENCOUNTER 2018-03-12 19:07 | Inpatient (IN) | payer OTHER ==
[2018-03-12] MEDS ORDERED: ACETAMINOPHEN 325 MG TAB PO (20:00)
[2018-03-12] MEDS ORDERED: DOCUSATE SODIUM 100 MG CAP PO (20:00)
[2018-03-12] MEDS ORDERED: NACL 0.9% 3 ML SYG IV (20:00)
[2018-03-12] MEDS ORDERED: BISACODYL (EC) 5 MG TAB PO (20:00)
[2018-03-12 20:39] LABS: ADD MAN DIFF? NO
[2018-03-12 20:40] LABS: WHITE BLOOD COUNT 5.9 10^3/ul (4.8-10.8)
[2018-03-12 20:40] LABS: BASOPHILS % 0.3 % (0.0-2.0); EOSINOPHILS % 0.5 % (0.0-7.0); HEMATOCRIT 40.7 % (37.0-47.0); HEMOGLOBIN 13.6 g/dl (12.0-16.0); LYMPHOCYTES # 1.3 10^3/ul (0.8-2.9); LYMPHOCYTES % 21.8 % (15.0-51.0); MEAN CORPUSCULAR HEMOGLOBIN 33.4 pg (29.0-33.0); MEAN CORPUSCULAR HGB CONC 33.4 g/dl (32.0-37.0); MEAN PLATELET VOLUME 10.1 fl (7.4-10.4); MONOCYTE # 0.4 10^3/ul (0.3-0.9); NEUTROPHIL # 4.2 10^3/ul (1.6-7.5); NEUTROPHILS % 71.1 % (39.0-77.0); PLATELET COUNT 222 10^3/UL (140-415); RED BLOOD COUNT 4.07 10^6/ul (4.20-5.40); RED CELL DISTRIBUTION WIDTH 12.5 % (11.5-14.5)
[2018-03-12 20:59] LABS: ALANINE AMINOTRANSFERASE 20 IU/L (13-69); ALBUMIN 4.4 g/dl (3.3-4.9); ALBUMIN/GLOBULIN RATIO 1.29; ALKALINE PHOSPHATASE 102 IU/L (42-121); ANION GAP 20 (8-16); ASPARTATE AMINO TRANSFERASE 33 IU/L (15-46); BILIRUBIN,INDIRECT 0.9 mg/dl (0-1.1); BILIRUBIN,TOTAL 0.9 mg/dl (0.2-1.3); BLOOD UREA NITROGEN 8 mg/dl (7-20); CALCIUM 9.6 mg/dl (8.4-10.2); CARBON DIOXIDE 18 mmol/L (21-31); CHLORIDE 102 mmol/L (97-110); CREATINE KINASE 180 IU/L (23-200); CREATININE 0.53 mg/dl (0.44-1.00); ETHANOL < 10.0 mg/dl; GLUCOSE 93 mg/dl (70-220); POTASSIUM 3.2 mmol/L (3.5-5.1); SODIUM 137 mmol/L (135-144); TOTAL PROTEIN 7.8 g/dl (6.1-8.1)
[2018-03-12 21:07] LABS: CK INDEX 0.6; CK-MB 1.04 ng/ml (0.0-2.4)
[2018-03-12 21:12] LABS: TROPONIN-I 0.067 ng/ml (0.000-0.120)
[2018-03-12] MEDS: POTASSIUM CHLORIDE (SR) 20 MEQ TAB PO ×3 (21:26→23:52)
[2018-03-12] MEDS: KETOROLAC 30 MG INJ IV (21:44)
[2018-03-13] MEDS: LORAZEPAM 2 MG INJ IV (02:27)
[2018-03-13 02:29] LABS: CREATINE KINASE 135 IU/L (23-200)
[2018-03-13 02:40] LABS: CK INDEX 0.7; CK-MB 1.01 ng/ml (0.0-2.4); TROPONIN-I 0.076 ng/ml (0.000-0.120)
[2018-03-13] MEDS: KETOROLAC 30 MG INJ IV (06:02)
[2018-03-13] MEDS: HYDROmorphONE 0.5 MG/0.5 ML SYG IM (06:52)
[2018-03-13] MEDS: DIPHENHYDRAMINE 50 MG INJ IV (06:52)
[2018-03-13 07:02] LABS: ADD MAN DIFF? NO
[2018-03-13 07:14] LABS: WHITE BLOOD COUNT 3.9 10^3/ul (4.8-10.8)
[2018-03-13 07:14] LABS: BASOPHILS % 0.8 % (0.0-2.0); EOSINOPHILS # 0.1 10^3/ul (0.0-0.5); EOSINOPHILS % 2.3 % (0.0-7.0); HEMATOCRIT 43.1 % (37.0-47.0); HEMOGLOBIN 14.2 g/dl (12.0-16.0); LYMPHOCYTES # 1.3 10^3/ul (0.8-2.9); LYMPHOCYTES % 34.1 % (15.0-51.0); MEAN CORPUSCULAR HEMOGLOBIN 33.4 pg (29.0-33.0); MEAN CORPUSCULAR HGB CONC 32.9 g/dl (32.0-37.0); MEAN CORPUSCULAR VOLUME 101.4 fl (82.0-101.0); MEAN PLATELET VOLUME 10.9 fl (7.4-10.4); MONOCYTE # 0.3 10^3/ul (0.3-0.9); MONOCYTES % 6.9 % (0.0-11.0); NEUTROPHIL # 2.2 10^3/ul (1.6-7.5); NEUTROPHILS % 55.6 % (39.0-77.0); PLATELET COUNT 202 10^3/UL (140-415); RED BLOOD COUNT 4.25 10^6/ul (4.20-5.40); RED CELL DISTRIBUTION WIDTH 12.2 % (11.5-14.5)
[2018-03-13 07:45] LABS: TROPONIN-I 0.063 ng/ml (0.000-0.120)
[2018-03-13 07:49] LABS: MAGNESIUM 1.3 mg/dl (1.7-2.5)
[2018-03-13 08:21] LABS: ALANINE AMINOTRANSFERASE 23 IU/L (13-69); ALBUMIN 3.9 g/dl (3.3-4.9); ALBUMIN/GLOBULIN RATIO 1.25; ALKALINE PHOSPHATASE 93 IU/L (42-121); ANION GAP 19 (8-16); ASPARTATE AMINO TRANSFERASE 36 IU/L (15-46); BILIRUBIN,INDIRECT 0.6 mg/dl (0-1.1); BILIRUBIN,TOTAL 0.6 mg/dl (0.2-1.3); BLOOD UREA NITROGEN 13 mg/dl (7-20); CALCIUM 10.4 mg/dl (8.4-10.2); CARBON DIOXIDE 16 mmol/L (21-31); CHLORIDE 108 mmol/L (97-110); CREATININE 0.58 mg/dl (0.44-1.00); GLUCOSE 83 mg/dl (70-220); SODIUM 138 mmol/L (135-144)
[2018-03-13] MEDS: PANTOPRAZOLE (EC) 40 MG TAB PO (09:10)
[2018-03-13] MEDS: THIAMINE 100 MG TAB PO (09:13)
[2018-03-13] MEDS: METHADONE 10 MG TAB PO (09:13)
[2018-03-13] MEDS: LEVOTHYROXINE 25 MCG TAB PO (10:39)
[2018-03-13] MEDS: LITHIUM CARBONATE 300 MG CAP PO ×2 (10:40→20:31)
[2018-03-13] MEDS: HYDROmorphONE 0.5 MG/0.5 ML SYG IV ×4 (10:54→23:37)
[2018-03-13] MEDS: HYDROCODONE/APAP (10/325) TAB PO ×2 (13:04→17:31)
[2018-03-13] MEDS: MAGNESIUM SULFATE 3 GM in DEXTROSE 5% 100 ML IVPB (15:08)
[2018-03-13 15:50] LABS: ADD UMIC YES; UR ASCORBIC ACID NEGATIVE (NEGATIVE); UR BACTERIA FEW /HPF (NONE SEEN); UR BILIRUBIN (Dip) NEGATIVE (NEGATIVE); UR BLOOD (Dip) NEGATIVE (NEGATIVE); UR CLARITY CLOUDY (CLEAR); UR COLOR YELLOW (YELLOW); UR GLUCOSE (Dip) NEGATIVE (NEGATIVE); UR KETONES (Dip) TRACE mg/dL (NEGATIVE); UR LEUKOCYTE ESTERASE (Dip) 3+ Leu/ul (NEGATIVE); UR MUCUS FEW /HPF (NONE SEEN); UR NITRITE (Dip) POSITIVE (NEGATIVE); UR RBC 4 /HPF (0-5); UR SPECIFIC GRAVITY (Dip) 1.016 (1.003-1.030); UR SQUAMOUS EPITHELIAL CELL FEW /HPF (FEW); UR TOTAL PROTEIN (Dip) NEGATIVE (NEGATIVE); UR UROBILINOGEN (Dip) NEGATIVE (NEGATIVE); UR WBC > 182 /HPF (0-5)
[2018-03-13 16:27] LABS: AMPHETAMINE/METHAMPHETAMINE Negative (NEGATIVE); BARBITURATES Negative (NEGATIVE); BENZODIAZEPINES Negative (NEGATIVE); CANNABINOIDS Negative (NEGATIVE); COCAINE Negative (NEGATIVE)
[2018-03-13 16:29] LABS: OPIATES Positive (NEGATIVE)
[2018-03-13] MEDS: LISINOPRIL 5 MG TAB PO (17:42)
[2018-03-14] MEDS: HYDROCODONE/APAP (10/325) TAB PO ×2 (00:35→18:54)
[2018-03-14] MEDS: HYDROmorphONE 0.5 MG/0.5 ML SYG IV ×5 (04:05→21:59)
[2018-03-14] MEDS: PANTOPRAZOLE (EC) 40 MG TAB PO (06:34)
[2018-03-14] MEDS: LEVOTHYROXINE 25 MCG TAB PO (06:34)
[2018-03-14 06:36] LABS: MAGNESIUM 1.5 mg/dl (1.7-2.5)
[2018-03-14] MEDS: LITHIUM CARBONATE 300 MG CAP PO ×2 (08:18→21:58)
[2018-03-14] MEDS: METHADONE 10 MG TAB PO (08:19)
[2018-03-14] MEDS: THIAMINE 100 MG TAB PO (08:19)
[2018-03-14] MEDS: LISINOPRIL 5 MG TAB PO (08:20)
[2018-03-14] MEDS: MAGNESIUM SULFATE 2 GM/50 ML 50 ML IVPB (11:48)
[2018-03-14] MEDS: LORAZEPAM 1 MG TAB PO (15:18)
[2018-03-14] MEDS: METOPROLOL (XL) 25 MG TAB PO (20:25)
[2018-03-15] MEDS: HYDROmorphONE 0.5 MG/0.5 ML SYG IV ×5 (02:12→20:32)
[2018-03-15] MEDS: LORAZEPAM 1 MG TAB PO ×2 (02:23→16:13)
[2018-03-15 05:43] LABS: ADD MAN DIFF? NO
[2018-03-15 05:54] LABS: WHITE BLOOD COUNT 4.5 10^3/ul (4.8-10.8)
[2018-03-15 05:54] LABS: ABNORMAL IP MESSAGE 1; BASOPHILS % 0.4 % (0.0-2.0); EOSINOPHILS # 0.1 10^3/ul (0.0-0.5); EOSINOPHILS % 2.9 % (0.0-7.0); HEMATOCRIT 41.4 % (37.0-47.0); HEMOGLOBIN 14.1 g/dl (12.0-16.0); LYMPHOCYTES # 0.5 10^3/ul (0.8-2.9); LYMPHOCYTES % 10.6 % (15.0-51.0); MEAN CORPUSCULAR HEMOGLOBIN 33.7 pg (29.0-33.0); MEAN CORPUSCULAR HGB CONC 34.1 g/dl (32.0-37.0); MEAN CORPUSCULAR VOLUME 98.8 fl (82.0-101.0); MEAN PLATELET VOLUME 10.6 fl (7.4-10.4); MONOCYTE # 0.2 10^3/ul (0.3-0.9); MONOCYTES % 3.3 % (0.0-11.0); NEUTROPHIL # 3.8 10^3/ul (1.6-7.5); NEUTROPHILS % 82.6 % (39.0-77.0); PLATELET COUNT 199 10^3/UL (140-415); RED BLOOD COUNT 4.19 10^6/ul (4.20-5.40); RED CELL DISTRIBUTION WIDTH 12.2 % (11.5-14.5)
[2018-03-15 05:58] LABS: POSITIVE DIFF @See below
[2018-03-15 06:06] LABS: MAGNESIUM 1.5 mg/dl (1.7-2.5)
[2018-03-15 06:14] LABS: ALANINE AMINOTRANSFERASE 18 IU/L (13-69); ALBUMIN 4.5 g/dl (3.3-4.9); ALBUMIN/GLOBULIN RATIO 1.25; ALKALINE PHOSPHATASE 106 IU/L (42-121); ANION GAP 17 (8-16); ASPARTATE AMINO TRANSFERASE 20 IU/L (15-46); BILIRUBIN,INDIRECT 0.4 mg/dl (0-1.1); BILIRUBIN,TOTAL 0.4 mg/dl (0.2-1.3); BLOOD UREA NITROGEN 13 mg/dl (7-20); CARBON DIOXIDE 21 mmol/L (21-31); CHLORIDE 103 mmol/L (97-110); CREATININE 0.68 mg/dl (0.44-1.00); GLUCOSE 103 mg/dl (70-220); POTASSIUM 4.3 mmol/L (3.5-5.1); SODIUM 137 mmol/L (135-144); TOTAL PROTEIN 8.1 g/dl (6.1-8.1)
[2018-03-15] MEDS: LEVOTHYROXINE 25 MCG TAB PO (06:31)
[2018-03-15] MEDS: PANTOPRAZOLE (EC) 40 MG TAB PO (06:31)
[2018-03-15 06:38] LABS: PROTIME 12.2 Sec (11.9-14.9)
[2018-03-15] MEDS: THIAMINE 100 MG TAB PO (08:32)
[2018-03-15] MEDS: LITHIUM CARBONATE 300 MG CAP PO ×2 (08:32→20:32)
[2018-03-15] MEDS: LISINOPRIL 5 MG TAB PO ×2 (08:33→09:51)
[2018-03-15] MEDS: METHADONE 10 MG TAB PO (08:33)
[2018-03-15] MEDS: METOPROLOL (XL) 25 MG TAB PO ×2 (08:34→20:32)
[2018-03-15] MEDS: MAGNESIUM OXIDE 400 MG TAB PO (09:45)
[2018-03-15] MEDS: ONDANSETRON 4 MG INJ IV (09:45)
[2018-03-15] MEDS ORDERED: BARIUM SULF 2% 450 ML BTL (BERRY SMOOTHIE) PO (11:00)
[2018-03-15 11:10] LABS: ADD UMIC NO; UR ASCORBIC ACID NEGATIVE (NEGATIVE); UR BILIRUBIN (Dip) NEGATIVE (NEGATIVE); UR BLOOD (Dip) NEGATIVE (NEGATIVE); UR CLARITY CLEAR (CLEAR); UR COLOR STRAW (YELLOW); UR GLUCOSE (Dip) NEGATIVE (NEGATIVE); UR KETONES (Dip) NEGATIVE (NEGATIVE); UR LEUKOCYTE ESTERASE (Dip) NEGATIVE Leu/ul (NEGATIVE); UR NITRITE (Dip) NEGATIVE (NEGATIVE); UR SPECIFIC GRAVITY (Dip) 1.004 (1.003-1.030); UR TOTAL PROTEIN (Dip) NEGATIVE (NEGATIVE); UR UROBILINOGEN (Dip) NEGATIVE (NEGATIVE)
[2018-03-15] MEDS: LEVOFLOXACIN 500MG/D5W (PMX) 100 ML IVPB (11:56)
[2018-03-15] MEDS: SOD CHLORIDE 0.45% 1,000 ML IV (17:27)
[2018-03-15] MEDS: SOD CHLORIDE 0.9% 100 ML (20:16)
[2018-03-15] MEDS: IOHEXOL 300MG/ML 150 ML BTL (20:16)
[2018-03-16] MEDS: HYDROmorphONE 0.5 MG/0.5 ML SYG IV ×6 (00:38→22:08)
[2018-03-16] MEDS: HYDROCODONE/APAP (10/325) TAB PO ×3 (06:37→19:50)
[2018-03-16] MEDS: PANTOPRAZOLE (EC) 40 MG TAB PO (06:37)
[2018-03-16] MEDS: LEVOTHYROXINE 25 MCG TAB PO (06:37)
[2018-03-16 06:53] LABS: ADD MAN DIFF? NO
[2018-03-16 07:02] LABS: ABNORMAL IP MESSAGE 1; BASOPHILS % 0.4 % (0.0-2.0); EOSINOPHILS % 1.6 % (0.0-7.0); HEMATOCRIT 40.9 % (37.0-47.0); HEMOGLOBIN 13.6 g/dl (12.0-16.0); LYMPHOCYTES # 0.5 10^3/ul (0.8-2.9); LYMPHOCYTES % 17.8 % (15.0-51.0); MEAN CORPUSCULAR HEMOGLOBIN 32.9 pg (29.0-33.0); MEAN CORPUSCULAR HGB CONC 33.3 g/dl (32.0-37.0); MEAN PLATELET VOLUME 11.3 fl (7.4-10.4); MONOCYTE # 0.2 10^3/ul (0.3-0.9); MONOCYTES % 9.3 % (0.0-11.0); NEUTROPHIL # 1.8 10^3/ul (1.6-7.5); NEUTROPHILS % 70.1 % (39.0-77.0); PLATELET COUNT 161 10^3/UL (140-415); RED BLOOD COUNT 4.13 10^6/ul (4.20-5.40); RED CELL DISTRIBUTION WIDTH 12.3 % (11.5-14.5)
[2018-03-16 07:02] LABS: WHITE BLOOD COUNT 2.6 10^3/ul (4.8-10.8)
[2018-03-16 07:10] LABS: POSITIVE DIFF @See below
[2018-03-16 07:22] LABS: ANION GAP 18 (8-16); BLOOD UREA NITROGEN 12 mg/dl (7-20); CALCIUM 9.7 mg/dl (8.4-10.2); CARBON DIOXIDE 20 mmol/L (21-31); CHLORIDE 102 mmol/L (97-110); CREATININE 0.75 mg/dl (0.44-1.00); GLUCOSE 112 mg/dl (70-220); POTASSIUM 4.9 mmol/L (3.5-5.1); SODIUM 135 mmol/L (135-144)
[2018-03-16 07:26] LABS: MAGNESIUM 1.4 mg/dl (1.7-2.5)
[2018-03-16] MEDS: LITHIUM CARBONATE 300 MG CAP PO ×2 (08:37→21:06)
[2018-03-16] MEDS: THIAMINE 100 MG TAB PO (08:37)
[2018-03-16] MEDS: LISINOPRIL 10 MG TAB PO (08:38)
[2018-03-16] MEDS: METOPROLOL (XL) 25 MG TAB PO ×2 (08:38→21:07)
[2018-03-16] MEDS: METHADONE 10 MG TAB PO (08:38)
[2018-03-16] MEDS: LEVOFLOXACIN 500MG/D5W (PMX) 100 ML IVPB (11:22)
[2018-03-16] MEDS: LORAZEPAM 1 MG TAB PO ×2 (11:23→23:33)
[2018-03-16] MEDS: MAGNESIUM OXIDE 400 MG TAB PO (12:57)
[2018-03-16] MEDS: ARTIFICIAL TEARS 15 ML OPH BOTH EYES (21:07)
[2018-03-17] MEDS: HYDROmorphONE 0.5 MG/0.5 ML SYG IV ×4 (02:17→14:34)
[2018-03-17 06:15] LABS: ADD MAN DIFF? NO
[2018-03-17 06:18] LABS: ABNORMAL IP MESSAGE 1; BASOPHILS % 1.2 % (0.0-2.0); EOSINOPHILS # 0.1 10^3/ul (0.0-0.5); HEMATOCRIT 39.2 % (37.0-47.0); HEMOGLOBIN 13.1 g/dl (12.0-16.0); LYMPHOCYTES # 0.6 10^3/ul (0.8-2.9); LYMPHOCYTES % 22.2 % (15.0-51.0); MEAN CORPUSCULAR HGB CONC 33.4 g/dl (32.0-37.0); MEAN CORPUSCULAR VOLUME 98.7 fl (82.0-101.0); MEAN PLATELET VOLUME 11.2 fl (7.4-10.4); MONOCYTE # 0.3 10^3/ul (0.3-0.9); MONOCYTES % 11.7 % (0.0-11.0); NEUTROPHIL # 1.5 10^3/ul (1.6-7.5); NEUTROPHILS % 60.5 % (39.0-77.0); PLATELET COUNT 178 10^3/UL (140-415); RED BLOOD COUNT 3.97 10^6/ul (4.20-5.40); RED CELL DISTRIBUTION WIDTH 12.1 % (11.5-14.5)
[2018-03-17 06:18] LABS: WHITE BLOOD COUNT 2.5 10^3/ul (4.8-10.8)
[2018-03-17] MEDS: LEVOTHYROXINE 25 MCG TAB PO (06:21)
[2018-03-17 06:25] LABS: POSITIVE DIFF @See below
[2018-03-17] MEDS: PANTOPRAZOLE (EC) 40 MG TAB PO (06:33)
[2018-03-17 06:47] LABS: MAGNESIUM 1.5 mg/dl (1.7-2.5)
[2018-03-17 06:57] LABS: ANION GAP 15 (8-16); BLOOD UREA NITROGEN 14 mg/dl (7-20); CALCIUM 9.8 mg/dl (8.4-10.2); CARBON DIOXIDE 23 mmol/L (21-31); CHLORIDE 106 mmol/L (97-110); CREATININE 0.69 mg/dl (0.44-1.00); GLUCOSE 109 mg/dl (70-220); PHOSPHORUS 4.1 mg/dl (2.5-4.9); POTASSIUM 4.5 mmol/L (3.5-5.1); SODIUM 139 mmol/L (135-144)
[2018-03-17] MEDS: LITHIUM CARBONATE 300 MG CAP PO (09:15)
[2018-03-17] MEDS: LISINOPRIL 10 MG TAB PO (09:15)
[2018-03-17] MEDS: THIAMINE 100 MG TAB PO (09:15)
[2018-03-17] MEDS: METHADONE 10 MG TAB PO (09:15)
[2018-03-17] MEDS: METOPROLOL (XL) 25 MG TAB PO (09:16)
[2018-03-17] MEDS: ARTIFICIAL TEARS 15 ML OPH BOTH EYES (09:42)
[2018-03-17] MEDS: LEVOFLOXACIN 500MG/D5W (PMX) 100 ML IVPB (10:30)
[2018-03-17] MEDS: HYDROCODONE/APAP (10/325) TAB PO (13:06)
[2018-03-18] MEDS ORDERED: LEVOFLOXACIN 500 MG TAB PO (06:00)
== END 2018-03-17 17:22 | disposition home or self-care (01) | DRG 312 ==
LOC: MS4 03-13 01:10 → MS3 19:07 → PP2 03-14 18:15
DX: R55 Syncope and collapse (principal); G90.50 Complex regional pain syndrome I, unspecified; G37.2 Central pontine myelinolysis; M48.56XA Collapsed vertebra, not elsewhere classified, lumbar region, initial encounter for fracture; N39.0 Urinary tract infection, site not specified; I50.20 Unspecified systolic (congestive) heart failure; I42.0 Dilated cardiomyopathy; E86.0 Dehydration; E03.9 Hypothyroidism, unspecified; F41.9 Anxiety disorder, unspecified; R11.2 Nausea with vomiting, unspecified; R42 Dizziness and giddiness; F31.9 Bipolar disorder, unspecified; J45.909 Unspecified asthma, uncomplicated; Z87.11 Personal history of peptic ulcer disease; Z87.891 Personal history of nicotine dependence
CPT/HCPCS: 74177; 80048; 80053; 80178; 80307; 81001; 81003; 82550; 82553; 83735; 84100; 84443; 84484; 84703; 85025; 85610; 85730; 87081; 93005; 93306; 97116; 97161; 97165; 97530; 97535; 99217; G0378